=== PATIENT | female | born 1985 | race Caucasian/White ===

== ENCOUNTER 2017-02-17 06:00 | Inpatient (IN) | payer BC ==
[2017-02-17] MEDS ORDERED: OLIVE OIL 118 ML BTL MISC PRN (07:01)
[2017-02-17] MEDS ORDERED: TERBUTALINE SULFATE 1 MG/ML VIAL IV PRN (07:01)
[2017-02-17] MEDS ORDERED: OXYTOCIN/RINGERS LACTATE 1,000 ML IV PRN (07:01)
[2017-02-17] MEDS ORDERED: LIDOCAINE 1% 30 ML SDV SC PRN (07:01)
[2017-02-17] MEDS ORDERED: LR 1,000 ML IV PRN (07:01)
[2017-02-17] MEDS ORDERED: EPSOM SALT 454 GM TP PRN (07:01)
[2017-02-17 07:29] LABS: % IMMATURE GRANULYOCYTES 0.6 % (0.0-1.1); ABSOLUTE IMMATURE GRANULOCYTES 0.06 10^3/uL (0.00-0.10); ADD DIFF? NO; ADD MORPH? NO; ADD SCAN? NO; ATYPICAL LYMPHOCYTE FLAG 50 (0-99); FRAGMENT RBC FLAG 0 (0-99); HEMATOCRIT 38.4 % (38.0-47.0); HEMOGLOBIN 12.9 g/dL (12.6-16.3); LEFT SHIFT FLG 0 (0-99); LIPEMIA HEMOLYSIS FLAG 80 (0-99); MEAN CELL HEMOGLOBIN CONCENTR. 33.6 g/dL (32.4-36.7); MEAN CELL VOLUME 86.3 fL (81.5-99.8); MEAN PLATELET VOLUME 10.2 fL (8.7-11.7); PLATELET CLUMPS FLAG 0 (0-99); PLATELET COUNT 242 10^3/uL (150-400); RED BLOOD CELL COUNT 4.45 10^6/uL (4.18-5.33); RED CELL DISTRIBUTION WIDTH 14.9 % (11.5-15.2)
[2017-02-17 07:39] LABS: ALANINE AMINOTRANSFERASE 24 IU/L (9-52); ASPARTATE AMINOTRANSFERASE 24 IU/L (14-46); BILIRUBIN,TOTAL 0.5 mg/dL (0.1-1.4); BILIRUBIN-CONJUGATED 0.4 mg/dL (0.0-0.5); BILIRUBIN-UNCONJUGATED 0.1 mg/dL (0.0-1.1); CREATININE 0.5 mg/dL (0.6-1.0); GLOMERULAR FILTRATION RATE > 60; LACTATE DEHYDROGENASE 508 IU/L (313-618); URIC ACID 5.5 mg/dL (2.5-6.8)
[2017-02-17] MEDS ORDERED: OXYTOCIN/RINGERS LACTATE 500 ML IV SCH (08:00)
--- NOTE | 2017-02-17 09:13 | GHP ---
[f rep st] PREOP HISTORY AND PHYSICAL DATE OF ADMISSION: 02/17/2017 ADMITTING DIAGNOSIS: 32-year-old, 2, para 1-0-0-1 at 40 weeks 0 days with an estimated due date of 02/17/2017, presents for elective induction of labor at term. HISTORY OF PRESENT COMPLAINT: The patient reports positive movement. Denies leaking of fluid or vaginal bleeding. Has had irregular contractions for the past few days. Denies complications with current . Complaining of headaches and BLE/BUE edema for past 2 days. States headaches have been relieved with Tylenol. The patient has received care with [facility] since 20 weeks. Transfer of care at 20 weeks from [place]. MEDICAL HISTORY: Sciatica related to herniated disc. 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 Knee surgery. Breast augmentation. Laparoscopic surgery on ovarian cyst. MEDICATIONS: vitamins, iron, vitamin D. ALLERGIES: No known drug allergies. GYNECOLOGIC HISTORY: Denies history of abnormal Paps, STDs. Hemorrhagic ovarian cyst rupture and laparoscopic repair in 2005. SOCIAL HISTORY: . at bedside. Denies alcohol, tobacco, or drug use. FAMILY HISTORY: Mother - multiple sclerosis. Father - lupus. OBSTETRIC HISTORY: 02/18/2015 vaginal delivery, male, 3700g, full term, no complications. LABS: O positive, antibody negative, HIV negative, hepatitis B negative, syphilis negative, rubella immune, gonorrhea/chlamydia negative. Pap negative. GBS negative. Elevated 1 hour GTT, 3 hour GTT within normal limits. Genetic screening declined. PHYSICAL EXAM: VITAL SIGNS: Stable. GENERAL APPEARANCE: Is alert and oriented x3. HEART: Rate regular. LUNGS: Clear to auscultation bilaterally. ABDOMEN: Gravid, nontender, SVE 2/50/-4, soft, posterior. Cephalic lie. heart tracing category 1. heart tones 140s. Moderate variability, positive accelerations, no decelerations. Contractions irregular. ASSESSMENT: A 32-year-old, 2, para 1-0-0-1 at 40 weeks 0 days. Elective induction of labor at term. PLAN: 1. Admit orders. 2. PIH labs. 3. Pitocin IOL per protocol. 4. Discussed Pitocin risks, patient verbalized understanding. 5. Continuous maternal/ monitoring. 6. Pain relief per patient request. 7. Active management of labor. 8. Discussed with Dr. Amaya, attending. /[id number]/MODL MTDD
--- NOTE | 2017-02-17 11:28 | OBPROG ---
OBG Progress Note Assessment/Plan: Assessment: 32y/o IUP @40w0d Elective IOL at term Plan: Con't pitocin IOL per protocol Pain mgmt as requested Disc AROM once SVE more favorable Con't maternal/ monitoring Anticipate 02/17/17 11:23 Subjective: Pt resting comfortably in bed. Reports CTXs becoming stronger. Objective: 02/17/17 06:50 02/17/17 06:50 Patient ABO/Rh O POSITIVE 02/17/17 06:50 Uric Acid 5.5 mg/dL (2.5-6.8) 02/17/17 06:50 Total Bilirubin 0.5 mg/dL (0.1-1.4) 02/17/17 06:50 Conjugated Bilirubin 0.4 mg/dL (0.0-0.5) 02/17/17 06:50 Unconjugated Bilirubin 0.1 mg/dL (0.0-1.1) 02/17/17 06:50 AST 24 IU/L (14-46) 02/17/17 06:50 ALT 24 IU/L (9-52) 02/17/17 06:50 Lactate Dehydrogenase 508 IU/L (313-618) 02/17/17 06:50 - SVE Dilation (cm): 3 Effacement (%): 50 Station: -3 Current Contraction Pattern: Regular (q 3-5 min) FHR (bpm): 135 FHR Pattern Variability: Moderate FHR Category: 1 (+accels, -decels) Membranes: Intact ICD10 Worksheet Patient Problems: Problems Problem Status Onset Elective induction of labor planned Acute - ICD10 Problem Qualifiers (1) Elective induction of labor planned
[2017-02-17] MEDS ORDERED: MISOPROSTOL 200 MCG TAB ONE (13:16)
--- NOTE | 2017-02-17 13:16 | OBPROG ---
OBG Progress Note Assessment/Plan: Assessment: 32y/o IUP @40w0d Elective IOL at term SROM, clear @1300 Plan: Con't pitocin IOL per protocol Pain mgmt as requested Con't maternal/ monitoring Anticipate 02/17/17 13:17 Subjective: Pt standing at bedside, considering going for walk. SROM'd clear @1300. States CTXs becoming more painful. Objective: 02/17/17 06:50 02/17/17 06:50 Patient ABO/Rh O POSITIVE 02/17/17 06:50 Uric Acid 5.5 mg/dL (2.5-6.8) 02/17/17 06:50 Total Bilirubin 0.5 mg/dL (0.1-1.4) 02/17/17 06:50 Conjugated Bilirubin 0.4 mg/dL (0.0-0.5) 02/17/17 06:50 Unconjugated Bilirubin 0.1 mg/dL (0.0-1.1) 02/17/17 06:50 AST 24 IU/L (14-46) 02/17/17 06:50 ALT 24 IU/L (9-52) 02/17/17 06:50 Lactate Dehydrogenase 508 IU/L (313-618) 02/17/17 06:50 - SVE Dilation (cm): 4 Effacement (%): 80 Station: -3 Current Contraction Pattern: Regular (q 2-3 min) FHR (bpm): 130 FHR Pattern Variability: Moderate FHR Category: 1 Membranes: SROM Amniotic Fluid Color: Clear (@1300) ICD10 Worksheet Patient Problems: Problems Problem Status Onset Elective induction of labor planned Acute - ICD10 Problem Qualifiers (1) Elective induction of labor planned
[2017-02-17] MEDS ORDERED: fentaNYL 2MCG/ML/BUP 0.1% RTU 100 ML BAG EP ONE (14:05)
[2017-02-17] MEDS ORDERED: PHENYLEPHRINE HCL 100 MCG/ML SYR ONE (14:06)
[2017-02-17] MEDS ORDERED: BUPIVACAINE 0.25% 30 ML SDV ONE (14:06)
[2017-02-17] MEDS ORDERED: fentaNYL 100 MCG/2 ML INJ ONE (14:07)
--- NOTE | 2017-02-17 15:34 | OBPROG ---
OBG Progress Note Assessment/Plan: Assessment: 32y/o IUP @40w0d Elective IOL at term Plan: Con't pitocin IOL per protocol Epidural in place Con't maternal/ monitoring Anticipate 02/17/17 15:25 Subjective: Pt resting comfortably in bed s/p epidural placement. Denies pain. Objective: 02/17/17 06:50 02/17/17 06:50 Patient ABO/Rh O POSITIVE 02/17/17 06:50 Uric Acid 5.5 mg/dL (2.5-6.8) 02/17/17 06:50 Total Bilirubin 0.5 mg/dL (0.1-1.4) 02/17/17 06:50 Conjugated Bilirubin 0.4 mg/dL (0.0-0.5) 02/17/17 06:50 Unconjugated Bilirubin 0.1 mg/dL (0.0-1.1) 02/17/17 06:50 AST 24 IU/L (14-46) 02/17/17 06:50 ALT 24 IU/L (9-52) 02/17/17 06:50 Lactate Dehydrogenase 508 IU/L (313-618) 02/17/17 06:50 - SVE Dilation (cm): 6 Effacement (%): 80 Station: -2 Current Contraction Pattern: Regular (q 2-4 min) FHR (bpm): 130 FHR Pattern Variability: Moderate FHR Category: 2 (mod variability, +accels, +early decels, occas variable decel with return to baseline) Membranes: SROM (SROM @1300; AROM forebag @1515) Amniotic Fluid Color: Clear ICD10 Worksheet Patient Problems: Problems Problem Status Onset Elective induction of labor planned Acute - ICD10 Problem Qualifiers (1) Elective induction of labor planned
[2017-02-17] MEDS ORDERED: PHENYLEPHRINE HCL 100 MCG/ML SYR IVP PRN (16:13)
[2017-02-17] MEDS ORDERED: ONDANSETRON 4 MG/2 ML VIAL IVP PRN (16:13)
--- NOTE | 2017-02-17 16:19 | POSTANESTH ---
Post Anesthetic Evaluation Cardiovascular Status: Normal, Stable Respiratory Status: Normal, Stable, Similar to Pre-op Cond. Level of Consciousness/Mental Status: Can Participate in Eval, Alert and Oriented Pain Control: Adequate, Prn Tx Ordered Nausea/Vomiting Control: Adequate, Prn Tx Ordered Complications Possibly Related to Anesthesia: None Noted (Tolerated epidural well, stable after phenylephrine x 1, comfortable.)
--- NOTE | 2017-02-17 16:23 | PREANESOB ---
Obstetric Pre-Anesthesia Info - General Info Proposed Procedure: Labor and delivery with pitocin. : 2 Para: 1 WBD: 40 - Info Status: Full Term Monitors: External FHR Baseline (bpm): 130 FHR Pattern: Reassuring - Labor Status Cervical Dilation per last OB SVE: 3 Station per last OB SVE: -2 Amniotic Fluid Color: Clear Pitocin: In Use Indications for Labor Analgesia: Induction of Labor, Pain Control Labor Epidural: Proposed Anesthesia ROS: Prior labor epidural. Herniated disc at L5S1. Allergies/Adverse Reactions: Allergy/AdvReac Type Severity Reaction Status Date / Time No Known Allergies Allergy Unverified 02/17/17 06:59 Home Medications: Medication Instructions Recorded IRON 1 tab PO DAILY 02/17/17 1 tab PO DAILY 02/17/17 VITAMIN D 2,000 mg PO DAILY 02/17/17 Visit Medications: Generic Name Dose Route Start Last Admin Trade Name Freq PRN Reason Stop Dose Admin Diphenhydramine HCl 25 - 50 mg 02/17/17 16:13 Benadryl Injection IVP 08/16/17 16:12 Q6HRS PRN Itching Lactated Ringer's 1,000 mls @ 0 mls/hr 02/17/17 07:01 02/17/17 08:21 Lr IV 08/16/17 07:00 1,000 mls PRN PRN Administration SEE PROTOCOL CONDITIONS Protocol Per Protocol Oxytocin/Lactated Ringer's 1,000 mls @ 150 mls/hr 02/17/17 07:01 Pitocin 20 Units/Lr (Premix) IV PRN PRN Post- bleeding Oxytocin/Lactated Ringer's 500 mls @ 0 mls/hr 02/17/17 08:00 02/17/17 08:21 Pitocin 30 Units/Lr (Premix) IV 08/16/17 07:59 500 mls CONT MARCELLO Administration Per Protocol Fentanyl/Bupivacaine HCl 100 mls @ 0 mls/hr 02/17/17 16:30 Fentanyl/Bupivacaine/Ns 2 Mcg/Ml 0.1% (Premix EP 02/27/17 16:29 CONT MARCELLO Protocol As Directed Lactated Ringer's 500 mls @ 0 mls/hr 02/17/17 16:30 Lr IV 08/16/17 16:29 CONT MARCELLO As Directed Ibuprofen 600 mg 02/17/17 07:01 Motrin PO 08/16/17 07:00 Q6HRS PRN post , inflammation Lidocaine HCl 30 ml 02/17/17 07:01 Lidocaine Hcl 1% SC 08/16/17 07:00 ONCE PRN Episiotomy Magnesium Sulfate 454 gm 02/17/17 07:01 Epsom Salt TP 08/16/17 07:00 PRN PRN perineal discomfort [place] Oil 118 ml 02/17/17 07:01 Sweet Oil MISC 08/16/17 07:00 ONCE PRN preneal massage Ondansetron HCl 4 mg 02/17/17 16:13 Zofran IVP 08/16/17 16:12 Q4HRS PRN Nausea/Vomiting, Can't Take PO Phenylephrine HCl 100 mcg 02/17/17 16:13 Jaden-Synephrine IVP 08/16/17 16:12 .Q2M PRN Hypotension Terbutaline Sulfate 0.25 mg 02/17/17 07:01 Brethine IV 08/16/17 07:00 ONCE PRN Tachysystole Discontinued Medications Generic Name Dose Route Start Last Admin Trade Name Freq PRN Reason Stop Dose Admin Bupivacaine HCl Confirm 02/17/17 14:06 Sensorcaine 0.25% Sdv Administered 02/17/17 14:07 Dose 30 ml .ROUTE .STK-MED ONE Fentanyl Confirm 02/17/17 14:07 Sublimaze Administered 02/17/17 14:08 Dose 100 mcg .ROUTE .STK-MED ONE Fentanyl/Bupivacaine HCl Confirm 02/17/17 14:05 Fentanyl/Bupivacaine/Ns 2 Mcg/Ml 0.1% (Premix Administered 02/17/17 14:06 Dose 100 ml EP .STK-MED ONE Misoprostol Confirm 02/17/17 13:16 Cytotec Administered 02/17/17 13:17 Dose 1,000 mcg .ROUTE .STK-MED ONE Phenylephrine HCl Confirm 02/17/17 14:06 Jaden-Synephrine Administered 02/17/17 14:07 Dose 1,000 mcg .ROUTE .STK-MED ONE - Anesthesia History Response to Local Anesthetics: Normal Anesthesia & Operative History: No Prior Problems - Social History Substance Use/Abuse: Denies - Focused Exam Blood Pressure: 115/70 Heart Rate: 89 Height/Weight (Nursing): Height 170.18 cm Weight 99.79 kg Physical Exam: Within normal limits. ASA Status: II Labs: 02/17/17 06:50 02/17/17 06:50 Patient ABO/Rh O POSITIVE 02/17/17 06:50 Uric Acid 5.5 mg/dL (2.5-6.8) 02/17/17 06:50 Total Bilirubin 0.5 mg/dL (0.1-1.4) 02/17/17 06:50 Conjugated Bilirubin 0.4 mg/dL (0.0-0.5) 02/17/17 06:50 Unconjugated Bilirubin 0.1 mg/dL (0.0-1.1) 02/17/17 06:50 AST 24 IU/L (14-46) 02/17/17 06:50 ALT 24 IU/L (9-52) 02/17/17 06:50 Lactate Dehydrogenase 508 IU/L (313-618) 02/17/17 06:50 - Plan Anesthetic Plan: CSE Consent Signed and on Chart: Yes Patient/Guardian Understands and Agrees to Plan: Yes
[2017-02-17] MEDS ORDERED: LR 500 ML IV SCH (16:30)
[2017-02-17] MEDS ORDERED: fentaNYL 2MCG/ML/BUP 0.1% RTU 100 ML EP SCH (16:30)
--- NOTE | 2017-02-17 16:44 | OBPROG ---
OBG Progress Note Assessment/Plan: Assessment: 32y/o IUP @40w0d Elective IOL at term Plan: IUPC placed, O2, position changes Con't pitocin IOL per protocol Epidural in place Con't maternal/ monitoring Anticipate 02/17/17 16:41 02/17/17 16:44 Subjective: Pt resting in bed, denies pain. Objective: 02/17/17 06:50 02/17/17 06:50 Patient ABO/Rh O POSITIVE 02/17/17 06:50 Uric Acid 5.5 mg/dL (2.5-6.8) 02/17/17 06:50 Total Bilirubin 0.5 mg/dL (0.1-1.4) 02/17/17 06:50 Conjugated Bilirubin 0.4 mg/dL (0.0-0.5) 02/17/17 06:50 Unconjugated Bilirubin 0.1 mg/dL (0.0-1.1) 02/17/17 06:50 AST 24 IU/L (14-46) 02/17/17 06:50 ALT 24 IU/L (9-52) 02/17/17 06:50 Lactate Dehydrogenase 508 IU/L (313-618) 02/17/17 06:50 Temp Pulse Resp BP Pulse Ox 89 115/70 02/17/17 16:33 02/17/17 16:33 - SVE Dilation (cm): 9 Effacement (%): 100 Station: -1 Current Contraction Pattern: Regular (q 2-4 min) FHR (bpm): 125 FHR Pattern Variability: Moderate FHR Category: 2 (+early decels with CTXs, occ variable with return to spont baseline) Membranes: SROM Amniotic Fluid Color: Clear ICD10 Worksheet Patient Problems: Problems Problem Status Onset Elective induction of labor planned Acute - ICD10 Problem Qualifiers (1) Elective induction of labor planned
[2017-02-17] MEDS ORDERED: DOCUSATE SODIUM 100 MG CAP PO PRN (17:34)
[2017-02-17] MEDS ORDERED: HYDROCORTISONE 0.5% CREAM TP PRN (17:34)
[2017-02-17] MEDS ORDERED: SIMETHICONE 80 MG TAB CHEW PO PRN (17:34)
[2017-02-17] MEDS ORDERED: ACETAMINOPHEN 325 MG TAB PO PRN (17:34)
--- NOTE | 2017-02-17 17:41 | OBPROC ---
- Labor and Delivery Onset of Contractions Date: 02/17/17 Onset of Contractions Time: 11:00 Onset of Contractions Type: Induced Rupture of Membranes Date: 02/17/17 Rupture of Membranes Time: 13:00 Rupture of Membranes Type: Spontaneous Amniotic Fluid Color: Clear Dilation Complete Time: 17:13 Delivery Type: Spontaneous Placenta Delivery Date: 02/17/17 Placenta Delivery Time: 17:19 Episiotomy/Laceration: Other (Specify) (Intact, No repair) EBL: 200 Complications: Nuchal Cord (x1, reduced) - Medications Labor Augmentation/Induction Meds Used: Pitocin Labor Augmentation/Induction Indication: Elective Anesthesia: Epidural - [place] Info A Delivery Date: 02/17/17 Delivery Time: 17:16 Sex of Infant: Female Score (1 Min): 8 Score (5 Min): 9
[2017-02-17] MEDS: IBUPROFEN 600 MG TAB PO PRN (19:46)
[2017-02-18] MEDS: HYDROCODONE/APAP 5/325 TAB PO PRN ×7 (00:40→23:11)
[2017-02-18] MEDS: IBUPROFEN 600 MG TAB PO PRN ×4 (01:31→17:49)
--- NOTE | 2017-02-18 18:29 | SOAPPROG ---
SOAP Progress Note Assessment/Plan: Assessment: 32 yo ppd# 1 s/p breast feeding uncomplicated post course Plan: routine post care 02/18/17 18:27 Subjective: patient is doing well. pain is well controlled. normal lochia. breast feeding is going well. denies headache and changes in vision. ambulating. passing gas. voiding without difficulty. denies headache and changes in vision. Objective: Vital Signs Temp Pulse Resp BP Pulse Ox 36.4 C 92 16 118/78 96 02/18/17 07:45 02/18/17 07:45 02/18/17 07:45 02/18/17 07:45 02/18/17 07:45 Laboratory Results 02/17/17 06:50 02/17/17 06:50 02/17/17 02/18/17 02/19/17 05:59 05:59 05:59 Output Total 700 Balance -700 Physical Exam - Physical Exam General Appearance: WD/WN, alert, no apparent distress Respiratory: chest non-tender, lungs clear, normal breath sounds Cardiac/Chest: normal peripheral pulses, regular rate, rhythm Abdomen: normal bowel sounds, non-tender, soft, other (fundus firm and non tender) Skin: normal color, warm/dry Extremities: normal range of motion, non-tender, normal inspection, normal capillary refill Neuro/Psych: no motor/sensory deficits, alert, normal mood/affect, oriented x 3 ICD10 Worksheet Patient Problems: Problems Problem Status Onset (spontaneous vaginal delivery) Acute
[2017-02-18 20:55] VITALS: O2SAT 95
[2017-02-19] MEDS: IBUPROFEN 600 MG TAB PO PRN ×2 (00:05→06:12)
[2017-02-19] MEDS: HYDROCODONE/APAP 5/325 TAB PO PRN ×2 (04:56→10:11)
--- NOTE | 2017-02-19 09:40 | SOAPPROG ---
SOAP Progress Note Assessment/Plan: Assessment: PPD 2 s/p Plan: D/C home, Shields for cramps prn 02/19/17 09:37 Subjective: Pt doing well - is using Shields for strong cramps. Rec to taper off as quickly as possible. Cont ibu regularly. bld is straightener and aligner urinating fine. States baby is BF well. Ready for D/C Objective: Vital Signs Temp Pulse Resp BP Pulse Ox 36.6 C 82 18 119/76 95 02/18/17 20:55 02/18/17 20:55 02/18/17 20:55 02/18/17 20:55 02/18/17 20:55 Laboratory Results 02/17/17 06:50 02/17/17 06:50 02/18/17 02/19/17 02/20/17 05:59 05:59 05:59 Output Total 700 Balance -700 Physical Exam - Physical Exam General Appearance: WD/WN Abdomen: non-tender, soft, other (FF at umb -1) Pelvic Exam: vaginal bleeding (normal lochia) Extremities: non-tender, pedal edema (mild) Neuro/Psych: normal mood/affect ICD10 Worksheet Patient Problems: Problems Problem Status Onset (spontaneous vaginal delivery) Acute
[2017-02-19 10:18] VITALS: BP 138/84; PULSE 112; RESP 14; TEMP 99
== END 2017-02-19 11:00 | disposition home or self-care (01) | DRG 775 ==
LOC: FLD 06:36 → FOB 21:00
PROVIDERS: ADMIT Obstetrics & Gynecology; ATTEND Obstetrics & Gynecology
DX: O69.82X0 Labor and delivery complicated by other cord entanglement, without compression, not applicable or unspecified (principal); Z37.0 Single live birth; Z3A.40 40 weeks gestation of pregnancy
CPT/HCPCS: J2370; J2590; J3010; J3105